=== PATIENT | male | born 1995 | race Caucasian/White ===

== ENCOUNTER 2021-12-02 23:05 | Emergency (ER) | payer SELFPAY ==
[~2021-12-02] VITALS: Ht 170.2 cm; Wt 78.6 kg
[2021-12-02 23:13] VITALS: TEMP 98
[2021-12-02 23:45] LABS: BASO # 0.1 K/mm3 (0.0-0.2); BASO % 0.7 % (0.0-2.0); EOS # 0.2 K/mm3 (0.0-0.7); EOS % 2.8 % (0.0-4.0); GRAN # 3.7 K/mm3 (1.4-6.5); GRAN % 54.5 % (42.2-75.2); HEMATOCRIT 39.6 % (42.0-52.0); HEMOGLOBIN 13.9 g/dl (13.5-18.0); LYMPH # 2.3 K/mm3 (1.2-3.4); LYMPH % 33.1 % (20.0-51.0); MEAN CELL VOLUME 80 fl (80.0-100.0); MEAN CORPUSCULAR HEMOGLOBIN 28 pg (27-31); MEAN CORPUSCULAR HGB CONC 35 g/dl (33.0-37.0); MEAN PLATELET VOLUME 10.6 fl (7.4-10.4); MONO # 0.6 K/mm3 (0.1-0.6); MONO % 8.8 % (1.7-9.3); PLATELET COUNT 249 K/mm3 (130-400); RED BLOOD COUNT 4.95 M/mm3 (4.20-5.60); REDCELL DISTRIBUTION WIDTH-CV 12.9 % (11.5-14.5)
[2021-12-03 00:02] LABS: BILIRUBIN,TOTAL 0.5 mg/dL (0.2-1.2); CALCIUM 9.2 mg/dL (8.4-10.2); CREATININE, serum 0.89 mg/dL (0.72-1.25); POTASSIUM 3.6 mmol/L (3.5-4.5); TOTAL PROTEIN 7.6 gm/dL (6.2-8.1)
[2021-12-03] MEDS ORDERED: PERCOCET 325 MG1 TA2 PO ×3 (01:28→16:24)
[2021-12-03] MEDS ORDERED: MOTRIN 800800 MG/TAB PO (01:28)
[2021-12-03 01:38] VITALS: BP 117/76; PULSE 82
[2021-12-04] MEDS ORDERED: ZOFRAN ODT4 MG PO (15:45)
== END 2021-12-03 01:45 | disposition home or self-care (01) ==
LOC: COL.ER 23:05
PROVIDERS: Personal Emergency Response Attendant
DX: K63.89 Other specified diseases of intestine (principal)
CPT/HCPCS: J2270; J2405; J7030; Q9967

== ENCOUNTER 2021-12-04 12:37 | Emergency (ER) | payer SELFPAY ==
[~2021-12-04] VITALS: Ht 170.2 cm; Wt 79.5 kg
[~2021-12-04 12:37] MED LIST: MOTRIN 800800 MG/TAB PO; PERCOCET 325 MG1 TA2 PO
[2021-12-04 13:25] LABS: BASO # 0.1 K/mm3 (0.0-0.2); BASO % 0.8 % (0.0-2.0); EOS # 0.2 K/mm3 (0.0-0.7); EOS % 2.9 % (0.0-4.0); GRAN # 4.1 K/mm3 (1.4-6.5); GRAN % 68.2 % (42.2-75.2); HEMOGLOBIN 13.9 g/dl (13.5-18.0); LYMPH # 1.4 K/mm3 (1.2-3.4); LYMPH % 22.7 % (20.0-51.0); MEAN CELL VOLUME 80 fl (80.0-100.0); MEAN CORPUSCULAR HEMOGLOBIN 28 pg (27-31); MEAN CORPUSCULAR HGB CONC 35 g/dl (33.0-37.0); MEAN PLATELET VOLUME 10.6 fl (7.4-10.4); MONO # 0.3 K/mm3 (0.1-0.6); MONO % 5.2 % (1.7-9.3); PLATELET COUNT 223 K/mm3 (130-400); RED BLOOD COUNT 4.99 M/mm3 (4.20-5.60); REDCELL DISTRIBUTION WIDTH-CV 12.7 % (11.5-14.5)
[2021-12-04 13:32] LABS: ALBUMIN 3.9 gm/dL (3.5-5.0); BILIRUBIN,TOTAL 0.6 mg/dL (0.2-1.2); CALCIUM 8.8 mg/dL (8.4-10.2); CREATININE, serum 0.84 mg/dL (0.72-1.25); TOTAL PROTEIN 7.5 gm/dL (6.2-8.1)
[2021-12-04] MEDS ORDERED: ZOFRAN ODT4 MG PO (15:45)
[2021-12-04 16:00] VITALS: BP 115/84; PULSE 70; TEMP 98.1
== END 2021-12-04 16:02 | disposition home or self-care (01) ==
LOC: COL.ER 12:37
PROVIDERS: Emergency Medicine
DX: K63.89 Other specified diseases of intestine (principal); R79.82 Elevated C-reactive protein (CRP)
CPT/HCPCS: J2405; J2765; J7030